=== PATIENT | male | born 1960 | race Hispanic/Latino ===

== ENCOUNTER 2023-05-18 11:59 | Emergency (ER) | payer BC ==
[~2023-05-18] VITALS: Ht 170.2 cm; Wt 110.2 kg
[~2023-05-18 11:59] MED LIST: AEC81 PO; ASCO500T19 PO; ATOR40TA71 PO; CALC0.253 PO; CALC667T6 PO; CITA10TA89 PO; DAPA10TA PO; FERR-72 PO; HYDR25TA67 PO; ISOS20TA9 PO; LINA5TAB PO; METO25TA6 PO; TAMS-1 PO
[2023-05-18 12:30] VITALS: BP 136/89; PULSE 80; RESP 16; O2SAT 96
== END 2023-05-18 13:00 | disposition home or self-care (01) ==
LOC: EDH 11:59
DX: Z46.6 Encounter for fitting and adjustment of urinary device (principal); I10 Essential (primary) hypertension; E11.9 Type 2 diabetes mellitus without complications; I25.2 Old myocardial infarction; Z88.0 Allergy status to penicillin; Z79.899 Other long term (current) drug therapy; Z90.49 Acquired absence of other specified parts of digestive tract